=== PATIENT | female | born 1975 | race Caucasian/White ===

== ENCOUNTER 2017-09-06 21:33 | Emergency (ER) | payer OTHER ==
[~2017-09-06] VITALS: Ht 154.9 cm; Wt 90.7 kg
--- NOTE | ~2017-09-06 | EKG ---
[address] [address] ELECTROCARDIOGRAM REPORT Name: FLORENTINODIMITRIOSLEONARD Vadim Room #: DEP [facility]#: [id number] Admission: 09/06/17 Attend Phys: Discharge: 09/06/17 Date of : 71 Report #: [id number] THIS REPORT FOR: //name// [facility] ED Test Date: 2017-09-06 Test Time: 21:40:15 Pat Name: LEONARD GOOD Department: Room: Gender: F [employer]: KOREY : 1975 Requested By: Angie Bailey Order Number: [id number] MD: Cornelius Holland Measurements Intervals [place] Rate: 71 P: 39 WA: 140 QRS: 1 QRSD: 83 T: 28 QT: 385 QTc: 419 Interpretive Statements Sinus rhythm Compared to ECG 07/20/2008 10:59:10 No significant changes Electronically Signed On 09-07-2017 8:09:58 CDT by Cornelius Holland [email or web address] <ELECTRONICALLY SIGNED> By: Cornelius Holland MD 09/07/17 08 214 214 Cornelius Holland MD /GLENN
[~2017-09-06 21:33] MED LIST: CIPROFLOXACIN500 M1 PO; CIPROFLOXACIN500 M3 PO; DIFLUCAN150 MG PO; DOXYCYCLINE 10100 M1; FLAGYL500 MG; IBUPROFEN 400400 M1 PO; IBUPROFEN 800800 M1; LORTAB 7.5/5001 TA3 PO; NOHOMEMEDICATIONS; NORCO 5-325 TA1 EACH PO; NORVASC 5 MG TAB5 MG PO; PERCOCET 5-3251 EACH PO; PROMETHAZINE-C120 ML PO; PROVERA10 MG PO; TESSALON PERLE100 MG PO; XOPENEX HFA15 GM; ZOFRAN4 MG PO; ZPAK PO
[2017-09-06] MEDS ORDERED: LISINOPRIL10 MG PO (22:29)
[2017-09-06] MEDS ORDERED: TYLENOL EXTRA500 MG PO (22:41)
[2017-09-06 22:44] LABS: ANION GAP 9 mmol/L (7-16); BUN 15 mg/dL (7-18); CALCIUM 9.3 mg/dL (8.5-10.1); CHLORIDE 101 mmol/L (98-107); CO2 26 mmol/L (21-32); CREATININE 0.8 mg/dL (0.6-1.0); GLUCOSE 97 mg/dL (74-106); POTASSIUM 4.5 mmol/L (3.5-5.1); SODIUM 136 mmol/L (136-145)
[2017-09-06 22:54] LABS: ALBUMIN 3.6 g/dL (3.4-5.0); SGOT 30 U/L (15-37); SGPT 22 U/L (30-65); TOTAL BILIRUBIN 0.4 mg/dL (<0.1-1.0); TOTAL PROTEIN 7.9 g/dL (6.4-8.2); TROPONIN-I < 0.04 ng/mL (<0.06)
[2017-09-06 23:14] LABS: HEMATOCRIT 42.5 % (37.0-47.0); HEMOGLOBIN 14.3 gm/dL (12.0-15.0); MCH 27.2 pg (26.0-34.0); MCHC 33.6 g/dL (28.0-37.0); MCV 80.8 fL (80.0-100.0); RBC 5.25 mil/uL (4.20-5.00); RDW 15.5 % (10.5-14.5); WBC 10.1 thou/uL (4.0-11.0)
[2017-09-06 23:23] VITALS: BP 150/72
== END 2017-09-06 23:29 | disposition home or self-care (01) ==
LOC: ER 21:33
PROVIDERS: Physician Assistant
DX: R07.9 Chest pain, unspecified (principal); J45.909 Unspecified asthma, uncomplicated; I10 Essential (primary) hypertension; Z88.2 Allergy status to sulfonamides; Z88.1 Allergy status to other antibiotic agents; Z87.891 Personal history of nicotine dependence

== ENCOUNTER → 2020-02-03 | Outpatient (CLI) | payer OTHER ==
[~2020-02-03] MED LIST changes: +LISINOPRIL10 MG PO; +TYLENOL EXTRA500 MG PO
== END ==
LOC: LAB 12:16
PROVIDERS: ATTEND Neuromusculoskeletal Medicine & OMM
DX: R09.89 Other specified symptoms and signs involving the circulatory and respiratory systems (principal); R53.83 Other fatigue; R19.7 Diarrhea, unspecified; M79.10 Myalgia, unspecified site; Z20.828 Contact with and (suspected) exposure to other viral communicable diseases